=== PATIENT | female | born 1955 | race Caucasian/White ===

== ENCOUNTER 2018-06-27 12:13 | Outpatient (CLI) | payer OTHER ==
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
--- NOTE | 2018-06-27 15:38 | RAD ---
AP PELVIS ONE VIEW: HISTORY: A 63-year-old female with a history of left-sided pelvic pain and left hip pain. FINDINGS: There is evidence for a minimally displaced left femoral neck fracture with mild impaction and possib ly mild varus deformity. The right hip shows a somewhat flattened acetabulum, evidence for probable associated hip dysplasia. No evidence for acute pelvic fracture. IMPRESSION: 1. Minimally impacted left femoral neck fracture with mild varus deformity. 2. Evidence for right hip dysplasia. 3. No acute pelvic fracture. POS: OFF
== END 2018-06-27 12:14 | disposition home or self-care (01) ==
LOC: BICRAD 12:13
PROVIDERS: ATTEND Family Medicine
DX: M25.552 Pain in left hip (principal); S72.012A Unspecified intracapsular fracture of left femur, initial encounter for closed fracture; Q65.89 Other specified congenital deformities of hip
CPT/HCPCS: 72170